=== PATIENT | female | born 1980 | race African-American/Black ===

== ENCOUNTER 2022-01-10 10:27 | Day surgery (SDC) | payer OTHER ==
[2022-01-05 09:43] LABS: Hemoglobin 9.4 g/dL (12.0-15.5); Mean Corpuscular HGB CONC 30.7 g/dL (32.0-36.0); Mean Corpuscular Hemoglobin 22.9 pg (27.0-33.0); Mean Corpuscular Volume 74.6 fl (81.6-98.3); Mean Platelet Volume 9.3 fl (7.4-10.4); Platelet Count 337 10x3/uL (150-450); RBC Distribution Width 21.1 % (11.5-14.5); White Blood Cell (WBC) Count 4.7 10x3/uL (3.5-10.5)
[2022-01-05 10:08] LABS: BHCG - Serum Negative (NEGATIVE); Pregs Control Background? CLEAR/WHITE (CLR/WHITE); Pregs Control Bar Appear? YES (CONTROL BAR)
[2022-01-08 15:41] VITALS: BMI 32.3
[~2022-01-10 10:27] MED LIST: Bupivacaine PF 0.5% 30 ML VIAL ONE; EPINEPHrine 1 MG/ML AMP ONE
[2022-01-10] MEDS ORDERED: CeleCOXIB 100 MG CAP ONE (10:44)
[2022-01-10] MEDS ORDERED: Famotidine/PF 20 mg/2ml Vial ONE (10:44)
[2022-01-10] MEDS ORDERED: Gabapentin 300 MG CAP ONE (10:44)
[2022-01-10] MEDS ORDERED: PROPOFOL 20 ML ONE (11:34)
[2022-01-10] MEDS ORDERED: CEFAZOLIN 2 GM VIAL ONE (11:58)
[2022-01-10] MEDS ORDERED: Midazolam HCl 2 mg/2 ml Vial ONE (12:01)
[2022-01-10] MEDS ORDERED: Fentanyl 100 MCG/2 ML VIAL ONE (12:19)
[2022-01-10] MEDS ORDERED: Meperidine HCl/PF 25 MG/ML VIAL ONE (14:05)
== END 2022-01-10 16:05 | disposition home or self-care (01) ==
LOC: CSHSDC 10:27
PROVIDERS: ATTEND Obstetrics & Gynecology
DX: D25.2 Subserosal leiomyoma of uterus (principal); D27.1 Benign neoplasm of left ovary; N92.0 Excessive and frequent menstruation with regular cycle; D64.9 Anemia, unspecified; J45.909 Unspecified asthma, uncomplicated
CPT/HCPCS: 36415; 84703; 85027; 86850; 86900; 86901; 88307; J0171; J2175; J2250; J2704; J3010; S0020; S0028